=== PATIENT | female | born 1965 | race African-American/Black ===

== ENCOUNTER 2016-12-26 10:06 | Emergency (ER) | payer OTHER ==
[~2016-12-26] VITALS: Ht 172.7 cm; Wt 103.9 kg
[~2016-12-26 10:06] MED LIST: AMOX875T PO; TRAM-29 PO
[2016-12-26 10:10] VITALS: BP 183/92
--- NOTE | 2016-12-26 10:38 | PHYS DOC ---
Past Medical History Past Medical History: Arthritis, Asthma, High Cholesterol, Hypertension Past Surgical History: Tubal ligation Alcohol Use: None Drug Use: None Adult General Chief Complaint Chief Complaint: ASTHMA HPI HPI Patient is a 51 year old female presents to the emergency department with a history of SOA. Patient states she was at work last night when someone sprayed a can of lysol. Patient states she has a history of asthma and triggers include the use of sprays. patient states she does not have an inhaler as she hardly ever has problems with her asthma. She denies fever, chills, nausea, vomiting, diarrhea or congestion. Patient states she has sharp pain in the chest area with deep breathing. She denies radiation of pain. Review of Systems Review of Systems Constitutional: Denies fever or chills [] Eyes: Denies change in visual acuity, redness, or eye pain [] HENT: Denies nasal congestion or sore throat [] Respiratory: cough with shortness of breath [] Cardiovascular: No additional information not addressed in HPI [] GI: Denies abdominal pain, nausea, vomiting, bloody stools or diarrhea [] : Denies dysuria or hematuria [] Musculoskeletal: Denies back pain or joint pain [] Integument: Denies rash or skin lesions [] Neurologic: Denies headache, focal weakness or sensory changes [] Endocrine: Denies polyuria or polydipsia [] Current Medications Current Medications Current Medications Medications (Trade) Dose Ordered Sig/Rico Start Time Stop Time Status Last Admin Dose Admin Albuterol Sulfate (Ventolin Neb Soln) 2.5 mg 1X ONCE 12/26/16 10:45 12/26/16 10:46 DC 12/26/16 10:45 2.5 MG Allergies Allergies Allergies Coded Allergies Type Severity Reaction Last Updated Verified No Known Drug Allergies 02/07/14 No Physical Exam Physical Exam Constitutional: Well developed, well nourished, no acute distress, non-toxic appearance. [] HENT: Normocephalic, atraumatic, bilateral external ears normal, oropharynx moist, no oral exudates, nose normal. [] Eyes: PERRLA, EOMI, conjunctiva normal, no discharge. [] Neck: Normal range of motion, no tenderness, supple, no stridor. [] Cardiovascular:Heart rate regular rhythm, no murmur [] Lungs & Thorax: Bilateral breath sounds clear to auscultation [] Skin: Warm, dry, no erythema, no rash. [] Back: No tenderness Extremities: No tenderness, no cyanosis, no clubbing, ROM intact, no edema. [] Neurologic: Alert and oriented X 3, normal motor function, normal sensory function, no focal deficits noted. [] Psychologic: Affect normal, judgement normal, mood normal. [] Current Patient Data Vital Signs Vital Signs Date Time Temp Pulse Resp B/P (MAP) Pulse Ox O2 Delivery O2 Flow Rate FiO2 12/26/16 10:47 100 Room Air 12/26/16 10:10 98.3 64 16 183/92 (122) 98.3 EKG EKG [] Radiology/Procedures Radiology/Procedures [] Course & Med Decision Making Course & Med Decision Making Pertinent Labs and Imaging studies reviewed. (See chart for details) Patient will be provided with albuterol treatment in the emergency department. Patient states that she feels much better after receiving albuterol treatment. She'll be provided with a prescription for albuterol inhaler with spacer. She' ll be recommended to use the inhaler for shortness of air difficulty breathing or wheezing. Patient agrees with discharge instructions regimens and follow-up recommendations. Signs symptoms to return back to emergency department been provided. [] Dragon Disclaimer Dragon Disclaimer This electronic medical record was generated, in whole or in part, using a voice recognition dictation system. Departure Departure Impression: Primary Impression: Asthma exacerbation Disposition: HOME, SELF-CARE Condition: STABLE Referrals: JOSEPH SHELBY MD (PCP) Patient Instructions: Asthma, Adult, [id number] Additional Instructions: Activity as tolerated. Medication as prescribed Avoid being around heavy fumigated areas Followup with primary care provider in 5-7 days Return to emergency department as needed for signs and symptoms that become worse. Scripts Albuterol Sulfate (PROAIR HFA INHALER) 8.5 Gm Hfa.aer.ad 1 PUFF INH PRN Q6HRS Y for SHORTNESS OF BREATH, #1 INHALER 0 Refills Prov: MARIA ELENA MOMIN APRN 12/26/16 MARIA ELENA MOMIN APRN December 26, 2016 10:38
[2016-12-26] MEDS ORDERED: ALBUTEROL SULFATE 2.5 MG/3 ML NEBU. NEB ONE (10:45)
[2016-12-26] MEDS ORDERED: PROAIR HFA8.5 GM INH (11:00)
== END 2016-12-26 11:12 | disposition home or self-care (01) ==
LOC: ER 10:06
DX: J45.901 Unspecified asthma with (acute) exacerbation (principal); I10 Essential (primary) hypertension; E78.00 Pure hypercholesterolemia, unspecified; M19.90 Unspecified osteoarthritis, unspecified site
CPT/HCPCS: 94250; 94640; 99283-25

== ENCOUNTER → 2017-03-23 | Outpatient (CLI) | payer OTHER ==
[~2017-03-23] MED LIST changes: +PROAIR HFA8.5 GM INH; -TRAM-29 PO; +TRAM-48 PO
--- NOTE | 2017-03-23 11:00 | KCIC ---
Bilateral digital screening mammograms: Reason for examination: Routine screening. Comparison is made to previous studies dated 06/04/2015 and 08/26/2011. The skin and nipples show no abnormalities. No abnormal lymph nodes are seen. The breast parenchyma is predominantly fatty. (Breast density: Category A.) There are no dominant masses, suspicious calcifications or architectural distortions. A few benign calcifications are again seen. Impression: No evidence of malignancy. Recommend routine screening. BI-RADS Category 2: Benign. "Our facility is accredited by the [employer] Mammography [employer]." This patient's information has been entered into a reminder system for the patient to be notified with the results of her examination and a target date for the next mammogram. Electronically signed by: Layne Gurrola MD (03/23/2017 10:57 AM) [id number]
== END | disposition home or self-care (01) ==
LOC: KCIC MAMMO 09:41
PROVIDERS: ATTEND Family Medicine
DX: Z12.31 Encounter for screening mammogram for malignant neoplasm of breast (principal)
CPT/HCPCS: G0202; 77067

== ENCOUNTER → 2018-03-26 | Outpatient (CLI) | payer OTHER ==
--- NOTE | 2018-03-26 17:26 | KCIC ---
Bilateral digital screening mammograms: Reason for examination: Routine screening. Comparison is made to previous studies dated 03/23/2017 and 06/01/2015. Interpretation was made with the benefit of CAD. The skin and nipples show no abnormalities. No abnormal lymph nodes are seen. The breast parenchyma is predominantly fatty. (Breast density: Category A.) There are no dominant masses, suspicious calcifications or architectural distortions. A few benign calcifications are again seen. Impression: No evidence of malignancy. Recommend routine screening. BI-RADS Category 2: Benign. "Our facility is accredited by the [employer] Mammography [employer]." This patient's information has been entered into a reminder system for the patient to be notified with the results of her examination and a target date for the next mammogram. Electronically signed by: Layne Gurrola MD (03/26/2018 5:22 PM) [id number]
== END | disposition home or self-care (01) ==
LOC: KCIC MAMMO 15:18
PROVIDERS: ATTEND Family Medicine
DX: Z12.31 Encounter for screening mammogram for malignant neoplasm of breast (principal); I10 Essential (primary) hypertension; E78.00 Pure hypercholesterolemia, unspecified; E87.6 Hypokalemia; J45.909 Unspecified asthma, uncomplicated
CPT/HCPCS: 77067

== ENCOUNTER → 2020-03-23 | Outpatient (CLI) | payer OTHER ==
[~2020-03-23] MED LIST changes: +ALBU2.5V8 INH; -PROAIR HFA8.5 GM INH
--- NOTE | 2020-03-23 16:03 | KCIC ---
Bilateral digital screening mammograms: Reason for examination: Routine screening. Comparison is made to previous studies dated back to 06/04/2015. Interpretation was made with the benefit of CAD. The skin and nipples show no abnormalities. No abnormal lymph nodes are seen. The breast parenchyma is predominantly fatty. (Breast density: Category A.) There are no dominant masses, suspicious calcifications or architectural distortions. A few benign calcifications are again seen. Impression: No evidence of malignancy. Recommend routine screening. BI-RADS Category 2: Benign. "Our facility is accredited by the [employer] Mammography Program." This patient's information has been entered into a reminder system for the patient to be notified with the results of her examination and a target date for the next mammogram. Electronically signed by: Layne Gurrola MD (03/23/2020 4:00 PM) [id number]
== END | disposition home or self-care (01) ==
LOC: KCIC MAMMO 08:02
PROVIDERS: ATTEND Family Medicine
DX: Z12.31 Encounter for screening mammogram for malignant neoplasm of breast (principal); N64.89 Other specified disorders of breast
CPT/HCPCS: 77067